=== PATIENT | female | born 1980 | race Caucasian/White ===

== ENCOUNTER 2017-01-23 15:41 | Emergency (ER) | payer SELFPAY ==
[2017-01-23 15:56] VITALS: TEMP 97.2; BMI 23.3
--- NOTE | 2017-01-23 16:00 | PDOC ---
History of Present Illness - History of Present Illness Initial Comments: 01/23/17 16:20 The patient is 36 year old female with a past medical hx of heroin abuse who presents to the ED via EMS for evaluation of a heroin overdose. The patient was found unconscious and was administered Narcan en route to the ED. The patient states she has been in rehab for the past two months and has been sober. She reports today is the first she has used heroin in two months. She injected one bag of heroin. She states prior to two months she would use 20 bags a day. The patient notes she took 1mg of Xanax today. She reports she ate breakfast this morning and states she feels fine while in the ED. The patient denies chest pain, SOB The patient denies fever, chills, headache The patient denies nausea, vomiting, diarrhea Allergies: Doxycycline Surgical: None <Jacquie Bishop - Last Filed: 01/23/17 16:21> - General History Source: Patient Exam Limitations: No Limitations <Licha Johnson - Last Filed: 01/25/17 11:45> - General Chief Complaint: Overdose Stated Complaint: OVERDOSE Time Seen by Provider: 01/23/17 15:47 Past History <Jacquie Bishop - Last Filed: 01/23/17 16:21> - Psycho/Social/Smoking Cessation Hx Anxiety: No Suicidal Ideation: No Smoking History: Never smoked Have you smoked in the past 12 months: No Information on smoking cessation initiated: No Hx Alcohol Use: No Drug/Substance Use Hx: Yes Substance Use Type: Heroin <Licha Johnson - Last Filed: 01/25/17 11:45> - Past Medical History Allergies/Adverse Reactions: Allergies Allergy/AdvReac Type Severity Reaction Status Date / Time No Known Allergies Allergy Verified 01/23/17 16:03 Home Medications: Ambulatory Orders Naloxone HCl [Narcan] 4 mg NS ASDIR #4 spray 01/23/17 Review of Systems - Review of Systems Able to Perform ROS?: Yes Comments:: 01/23/17 16:21 GENERAL/CONSTITUTIONAL: No: fever, chills, weakness, loss of appetite. HEAD, EYES, EARS, NOSE AND THROAT: No: change in vision, ear pain, discharge, sore throat, throat swelling. CARDIOVASCULAR: No: chest pain, lightheadedness, palpitations, syncope RESPIRATORY: No: cough, shortness of breath, wheezing, hemoptysis, stridor. GASTROINTESTINAL: No: nausea, vomiting, abdominal cramping, diarrhea, rectal bleeding, constipation. GENITOURINARY: No: dysuria, hematuria, frequency, urgency, flank pain. MUSCULOSKELETAL: No: back pain, neck pain, joint pain, muscle swelling or pain SKIN: No: lesions, pallor, rash or easy bruising. NEUROLOGIC: No: headache, vertigo, paresthesias, weakness ENDOCRINE: No: unexplained weight gain or loss HEMATOLOGIC/LYMPHATIC: No: anemia, easy bleeding, swelling nodes <Jacquie Bishop - Last Filed: 01/23/17 16:21> *Physical Exam - Vital Signs Last Vital Signs Temp Pulse Resp BP Pulse Ox 97.2 F L 113 H 22 140/122 115 H 01/23/17 15:51 01/23/17 15:51 01/23/17 15:51 01/23/17 15:51 01/23/17 15:51 - Physical Exam Comments: 01/23/17 16:21 GENERAL: The patient is in no acute distress. HEAD: Normal with no signs of trauma. EYES: PERRLA, EOMI, sclera anicteric, conjunctiva clear. ENT: Ears normal, nares patent, oropharynx clear without exudates. Moist mucous membranes. NECK: Normal range of motion, supple without lymphadenopathy, JVD, or masses. LUNGS: Breath sounds equal, clear to auscultation bilaterally. No wheezes, and no crackles. HEART:Regular rate and rhythm, normal S1 and S2 without murmur, rub or gallop. ABDOMEN: Soft, nontender, normoactive bowel sounds. No guarding, no rebound. EXTREMITIES: Normal range of motion, no edema. No clubbing or cyanosis. No erythema, or tenderness. NEUROLOGICAL: Cranial nerves II through XII grossly intact. Normal speech. No focal neurological deficits. MUSCULOSKELETAL: Back nontender to palpation, no CVA tenderness SKIN: Warm, Dry, normal turgor, no rashes or lesions noted. <Jacquie Bishop - Last Filed: 01/23/17 16:21> - Vital Signs Last Vital Signs Temp Pulse Resp BP Pulse Ox 97.2 F L 113 H 22 140/122 115 H 01/23/17 15:51 01/23/17 15:51 01/23/17 15:51 01/23/17 15:51 01/23/17 15:51 <Licha Johnson - Last Filed: 01/25/17 11:45> Heart Score/ECG Review #1 ECG reviewed & interpreted by me at: 17:10 General ECG Interpretation: Sinus Rhythm, Normal Intervals, No acute ischemic changes 01/23/17 17:10 SR tachycardiac rate of 108 bpm Nml axis No st elevations or depressions T waves nml <Licha Johnson - Last Filed: 01/25/17 11:45> Medical Decision Making - Medical Decision Making 01/23/17 16:00 A portion of this note was documented by scribe services under my direction. I have reviewed the details of the note, within reason, and agree with the documentation with the following case summary and management plan written by me. Nursing documentation reviewed and incorporated into medical decision making 01/23/17 16:47 This is a 36 yo F with no significant past medical history who presents to the ER s/p heroin use Pt states 2 months ago, she went into rehab She has been clean since then, not on Methadone Prior to Detox, she was using upwards of 2.5 bundles of Heroin Today, she used 1 bag of heroin (IVDU) and Xanax 1mg Does not know what happened after that Boyfriend called EMS Pt given Narcan Pt is awake and alert RR 10 Pt is tachycardiac Will do Urine Will give IVF for tachycardia and dehydration Will monitor for somnolence once Narcan wears off If stable over the next3 hours, will discharge to home Updated history Pt states that they had two narcan vials from a prior Rehab stay at [facility] Both she and her boyfriend were getting high When he passed out, she gave him both doses of narcan (1st one seemed ineffective) He awoke and then she passed out but they had run out of Narcan He panicked and called 911 EMS gave narcan I have spoken to patient She is eating candies with her boyfriend She has been offered a rehab program (aslo given the referral to [facility]) I have ordered Narcan Nasal spray Pt states she is NOT going to do any more heroin but .... in case she does.... <Licha Johnson - Last Filed: 01/25/17 11:45> *DC/Admit/Observation/Transfer - Attestations Scribe Attestion: 01/23/17 16:20 Documentation prepared by Jacquie Bishop, acting as biomedical engineering technologist for Licha Johnson MD/DO. <Jacquie Bishop - Last Filed: 01/23/17 16:21> - Discharge Dispostion Admit: No <Licha Johnson - Last Filed: 01/25/17 11:45> Diagnosis at time of Disposition: Heroin use - Discharge Dispostion Disposition: HOME Condition at time of disposition: Improved - Prescriptions Prescriptions: Naloxone HCl [Narcan] 4 mg NS ASDIR #4 spray - Referrals Referrals: STAFF,NOT ON [Primary Care Provider] - Dmitri Shannon MD [Staff Physician] - - Patient Instructions Printed Discharge Instructions: Chemical Dependency (Narcotic) (Alternative Therapy) Additional Instructions: Amrik Thank you for coming in to the ER today If you would like, you can go to [facility] for their detox program Return to the ER for any other concerns or complaints - Post Discharge Activity Work/School Note: Back to Work
[2017-01-23] MEDS ORDERED: SODIUM CHLORIDE 1,000 ML IV STA (16:13)
[2017-01-23 18:08] VITALS: BP 105/77; PULSE 89
[2017-01-23 18:29] LABS: URINE APPEARANCE SLCLOUDY; URINE BILIRUBIN NEGATIVE (NEGATIVE); URINE BLOOD NEGATIVE (NEGATIVE); URINE COLOR YELLOW; URINE GLUCOSE (UA) NEGATIVE (NEGATIVE); URINE KETONE NEGATIVE (NEGATIVE); URINE LEUK ESTERASE NEGATIVE (NEGATIVE); URINE NITRITE NEGATIVE (NEGATIVE); URINE UROBILINOGEN NEGATIVE E.U./dl (0.2-1.0)
[2017-01-23 18:35] LABS: URINE PROTEIN 1+ (NEGATIVE)
[2017-01-23 18:36] LABS: URINE BACTERIA RARE /hpf (NONE SEEN); URINE HYALINE CAST 9 /lpf; URINE MUCUS MANY; URINE RBC 3 /hpf (0-3); URINE WBC 7 /hpf (3-5)
--- NOTE | 2017-01-24 20:26 | EKG ---
Test Reason : Blood Pressure : / mmHG Vent. Rate : 108 BPM Atrial Rate : 108 BPM P-R Int : 130 ms QRS Dur : 078 ms QT Int : 344 ms P-R-T Axes : 054 056 024 degrees QTc Int : 460 ms SINUS TACHYCARDIA OTHERWISE NORMAL ECG NO PREVIOUS ECGS AVAILABLE Confirmed by NILES HERNÁNDEZ MD ([id number]) on 01/24/2017 8:26:21 PM Referred By: Confirmed By:NILES HERNÁNDEZ MD
== END 2017-01-23 18:49 | disposition home or self-care (01) ==
LOC: SUPCPDRO 15:41 → JER 15:41
PROC: 3E0337Z Introduction of Electrolytic and Water Balance Substance into Peripheral Vein, Percutaneous Approach (ICD-10-PCS; principal; 2017-01-23)
DX: F11.10 Opioid abuse, uncomplicated (principal); F13.10 Sedative, hypnotic or anxiolytic abuse, uncomplicated; E87.6 Hypokalemia
CPT/HCPCS: 81003; 81015; 84703; 93005; 93010; 99283-25

== ENCOUNTER 2017-07-20 12:19 | Emergency (ER) | payer SELFPAY ==
[2017-07-20 12:39] VITALS: BP 121/75; PULSE 65; TEMP 98.6; BMI 21.6
[2017-07-20] MEDS ORDERED: ONDANSETRON 4 MG/2 ML VIAL IVPUSH ONE (14:25)
[2017-07-20] MEDS ORDERED: SODIUM CHLORIDE 1,000 ML IV STA ×2 (14:25→15:34)
[2017-07-20 14:58] LABS: BASOPHIL 0.3 % (0-2.0); MCH 27.7 pg (25.7-33.7); MCHC 33.6 g/dl (32.0-36.0); MEAN CELL VOLUME 82.6 fl (80-96); NEUTROPHILS 83.7 % (42.8-82.8); PLATELET COUNT 359 K/MM3 (134-434); RDW 15.5 % (11.6-15.6); WHITE BLOOD COUNT 12.2 K/mm3 (4.0-10.0)
[2017-07-20 15:00] LABS: URINE APPEARANCE TURBID; URINE BILIRUBIN NEGATIVE (NEGATIVE); URINE BLOOD 3+ (NEGATIVE); URINE COLOR AMBER; URINE GLUCOSE (UA) NEGATIVE (NEGATIVE); URINE KETONE 2+ (NEGATIVE); URINE LEUK ESTERASE TRACE (NEGATIVE); URINE NITRITE NEGATIVE (NEGATIVE); URINE UROBILINOGEN NEGATIVE mg/dL (0.2-1.0)
[2017-07-20 15:12] LABS: URINE MUCUS MANY; URINE PROTEIN 1+ (NEGATIVE); URINE RBC 28 /hpf (0-3); URINE WBC 3 /hpf (3-5)
--- NOTE | 2017-07-20 15:15 | PDOC ---
History of Present Illness - General Chief Complaint: Substance Abuse Stated Complaint: DEHYDRATED/detox Time Seen by Provider: 07/20/17 14:05 History Source: Patient Exam Limitations: No Limitations - History of Present Illness Initial Comments: 07/20/17 15:09 36-year-old female with history of alcohol and heroin abuse presents to the ED for complaints of nausea vomiting, diarrhea, increased anxiety, and difficulty eating. Patient states this time to detox for heroin and is currently on day 3 but states is requiring medical attention since she is unable to do it on her own. Patient is requesting something for anxiety and IV fluids. Timing/Duration: constant Severity: moderate Associated Symptoms: reports: loss of appetite, malaise, nausea/vomiting Past History - Travel Traveled outside of the country in the last 30 days: No Close contact w/someone who was outside of country & ill: No - Past Medical History Allergies/Adverse Reactions: Allergies Allergy/AdvReac Type Severity Reaction Status Date / Time Tetracyclines Allergy Verified 07/20/17 12:35 Home Medications: Ambulatory Orders NK [No Known Home Medication] 07/20/17 Asthma: Yes Other medical history: alcohol and heroin abuse - Psycho/Social/Smoking Cessation Hx Anxiety: No Suicidal Ideation: No Smoking History: Never smoked Have you smoked in the past 12 months: Yes Number of Cigarettes Smoked Daily: 20 Information on smoking cessation initiated: Yes Hx Alcohol Use: Yes (daily) Drug/Substance Use Hx: Yes (heroin) Substance Use Type: Alcohol, Heroin Patient Lives Alone: No Lives with/in: spouse/SO Review of Systems - Review of Systems Able to Perform ROS?: Yes Constitutional: No: Symptoms Reported HEENTM: No: Symptoms Reported Respiratory: No: Symptoms reported Cardiac (ROS): No: Symptoms Reported ABD/GI: Yes: Nausea, Poor Appetite, Poor Fluid Intake, Vomiting Musculoskeletal: No: Symptoms Reported Integumentary: No: Symptoms Reported Neurological: No: Headache Psychiatric: Yes: Anxiety, Sleep Pattern Change, Mood Swings *Physical Exam - Vital Signs Last Vital Signs Temp Pulse Resp BP Pulse Ox 98.6 F 65 18 121/75 100 07/20/17 12:37 07/20/17 12:37 07/20/17 12:37 07/20/17 12:37 07/20/17 12:37 - Physical Exam General Appearance: Yes: Nourished, Appropriately Dressed. No: Apparent Distress HEENT: positive: EOMI, VANESSA. negative: Pale Conjunctivae Neck: positive: Supple Respiratory/Chest: positive: Lungs Clear, Normal Breath Sounds. negative: Respiratory Distress, Accessory Muscle Use Cardiovascular: positive: Regular Rhythm, Regular Rate. negative: Murmur Gastrointestinal/Abdominal: positive: Soft. negative: Tenderness Extremity: positive: Normal Capillary Refill. negative: Pedal Edema Integumentary: positive: Warm, Pale, Moist Neurologic: positive: Motor Strength 5/5. negative: Normal Mood/Affect (anxious ) ED Treatment Course - LABORATORY CBC & Chemistry Diagram: 07/20/17 14:50 07/20/17 14:50 - ADDITIONAL ORDERS Additional order review: Laboratory Results 07/20/17 07/20/17 14:50 14:50 Lipase Cancelled Urine HCG, Qual Negative 07/20/17 14:50 RBC 5.69 H MCV 82.6 MCHC 33.6 RDW 15.5 MPV 7.0 L Neutrophils % 83.7 H Lymphocytes % 12.8 Monocytes % 3.2 L Eosinophils % 0.0 Basophils % 0.3 Medical Decision Making - Medical Decision Making 07/20/17 15:13 Patient here for evaluation of dehydration and GI complaints and while trying to detox from heroin. Patient on exam had no acute findings except for that she was anxious and requiring medications upon arrival. Patient ordered for CBC, comp, magnesium, lipase, urinalysis, urine , IV fluids, Zofran, Ativan, and Benadryl 07/20/17 17:28 Laboratory Tests 07/20/17 07/20/17 07/20/17 14:50 14:50 14:50 WBC 12.2 H Hgb 15.8 H Hct 47.0 H Neutrophils % 83.7 H Monocytes % 3.2 L Sodium 141 Potassium 3.4 L Chloride 100 Carbon Dioxide 27 Anion Gap 14 BUN 17 Creatinine 1.0 Random Glucose 118 H Calcium 10.3 H Magnesium Total Bilirubin 0.8 AST 19 ALT 23 Alkaline Phosphatase 80 Total Protein 9.2 H Albumin 5.1 H Lipase 112 Urine Protein 1+ H Urine Ketones 2+ H Urine Blood 3+ H Urine Nitrite Negative Ur Leukocyte Esterase Trace Urine RBC 28 Urine WBC 3 Urine HCG, Qual Negative 07/20/17 14:50 WBC Hgb Hct Neutrophils % Monocytes % Sodium Potassium Chloride Carbon Dioxide Anion Gap BUN Creatinine Random Glucose Calcium Magnesium 2.3 Total Bilirubin AST ALT Alkaline Phosphatase Total Protein Albumin Lipase Urine Protein Urine Ketones Urine Blood Urine Nitrite Ur Leukocyte Esterase Urine RBC Urine WBC Urine HCG, Qual Pt requesting to leave. Pt will be discharged home *DC/Admit/Observation/Transfer Diagnosis at time of Disposition: Heroin use - Discharge Dispostion Disposition: HOME Condition at time of disposition: Improved - Referrals Referrals: Wilbert Hammond MD [Staff Physician] - - Patient Instructions Printed Discharge Instructions: Chemical Dependency (Narcotic) (Alternative Therapy) Additional Instructions: Please utilize all resources to avoid drug and alcohol use. If she develops severe symptoms she may return to the ED. otherwise please follow up with referred detox physician at [facility]
[2017-07-20 15:22] LABS: ALBUMIN 5.1 g/dl (3.4-5.0); ANION GAP 14 (8-16); BILIRUBIN,TOTAL 0.8 mg/dL (0.2-1.0); CALCIUM 10.3 mg/dL (8.5-10.1); CO2 27 mmol/L (21-32); GLUCOSE,RANDOM 118 mg/dL (74-106); SGOT/AST 19 U/L (15-37); SGPT/ALT 23 U/L (12-78); TOT PROT 9.2 g/dl (6.4-8.2)
[2017-07-20 15:23] LABS: ALK PHOS 80 U/L (45-117)
[2017-07-20] MEDS ORDERED: LORazepam 2 MG/ML SDV VIAL ONE (15:31)
[2017-07-20] MEDS ORDERED: ONDANSETRON 4 MG/2 ML VIAL ONE ×2 (15:32)
[2017-07-20] MEDS ORDERED: POTASSIUM CHLORIDE TABS 20 MEQ TABLET.ER (FP) PO ONE ×2 (16:21→16:51)
== END 2017-07-20 18:00 | disposition home or self-care (01) ==
LOC: JER 12:19
PROC: 3E033NZ Introduction of Analgesics, Hypnotics, Sedatives into Peripheral Vein, Percutaneous Approach (ICD-10-PCS; principal; 2017-07-20)
PROC: 3E033GC Introduction of Other Therapeutic Substance into Peripheral Vein, Percutaneous Approach (ICD-10-PCS; 2017-07-20)
DX: F11.23 Opioid dependence with withdrawal (principal); F10.230 Alcohol dependence with withdrawal, uncomplicated; E86.0 Dehydration
CPT/HCPCS: 36415; 80053; 81003; 81015; 83690; 83735; 84703; 85025; 99283-25

== ENCOUNTER 2018-04-24 15:29 | Inpatient (IN) | payer OTHER ==
[2018-04-24 15:40] VITALS: BMI 31.1
--- NOTE | 2018-04-24 18:16 | HP ---
COWS - Scale Resting Pulse: 0= MI 80 or Below Sweatin= Chills/Flushing Restless Observation: 1= Difficult to Sit Still Pupil Size: 1= Pupils >than Normal Bone or Joint Aches: 1= Mild Discomfort Runny Nose/ Eye Tearin= Runny Nose/Eyes GI Upset > 30mins: 3= Vomiting/Diarrhea Tremor Observation: 1= Tremor [place], Not Seen Yawning Observation: 2= >3x During Session Anxiety or Irritability: 2=Irritable/Anxious Goose Flesh Skin: 0=Smooth Skin COWS Score: 14 CIWA Score - CIWA Score Nausea/Vomitin-Int. Nausea w/Dry Heave Muscle Tremors: 2 Anxiety: 3 Agitation: 3 Paroxysmal Sweats: 2 Orientation: 0-Oriented Tacttile Disturbances: 0-None Auditory Disturbances: 0-None Visual Disturbances: 0-None Headache: 0-None Present CIWA-Ar Total Score: 14 Admission ROS S - HPI Chief Complaint: " I am trying to get off heroin, I feel really back, I cant not eat anything, I' ve been vomiting." Allergies/Adverse Reactions: Allergies Allergy/AdvReac Type Severity Reaction Status Date / Time Tetracyclines Allergy Verified 04/24/18 16:47 History of Present Illness: 37 yo female with hx of heroin, alcohol, and nicotine dependence. Reports was introduced to heroin by a friend three years. PMHX anxiety and depression. Denies suicidal / homicidal ideation. Reports hx of OD 2 months ago. Last detox 2 months ago at home, last inpatient [facility] in April 25, 2017. Longest period of sobriety 45 days. Exam Limitations: No Limitations - Ebola screening Have you traveled outside of the country in the last 21 days: No (N) Have you had contact with anyone from an Ebola affected area: No Have you been sick,other than usual withdrawal symptoms: No Do you have a fever: No - Review of Systems Constitutional: Chills, Diaphoresis, Changes in sleep, Weakness, Other (weight gain from heroin use 20+ lbs) EENT: reports: Nose Congestion Respiratory: reports: No Symptoms reported Cardiac: reports: No Symptoms Reported GI: reports: Nausea, Poor Appetite, Poor Fluid Intake, Vomiting : reports: No Symptoms Reported Musculoskeletal: reports: Back Pain, Joint Pain Integumentary: reports: No Symptoms Reported Neuro: reports: Dizziness Endocrine: reports: Increased Thirst Hematology: reports: No Symptoms Reported Psychiatric: reports: Anxious Other Systems: Reviewed and Negative Patient History - Patient Medical History Hx Anemia: No Hx Asthma: No Hx Chronic Obstructive Pulmonary Disease (COPD): No Hx Cancer: No Hx Cardiac Disorders: No Hx Congestive Heart Failure: No Hx Hypertension: No Hx Hypercholesterolemia: No Hx Pacemaker: No HX Cerebrovascular Accident: No Hx Seizures: No Hx Dementia: No Hx Diabetes: No Hx Gastrointestinal Disorders: No Hx Liver Disease: No Hx Genitourinary Disorders: No Hx Sexually Transmitted Disorders: No Hx Renal Disease (ESRD): No Hx Thyroid Disease: No Hx Human Immunodeficiency Virus (HIV): No (declines testing today ) Hx Hepatitis C: No Hx Depression: Yes Hx Suicide Attempt: No Hx Bipolar Disorder: Yes (risperidone ) Hx Schizophrenia: No - Patient Surgical History Past Surgical History: No - PPD History Previous Implant?: No Documented Results: Negative w/o proof Implanted On Prior R Admission?: No PPD to be Administered?: Yes - Reproductive History Patient is a Female of Child Bearing Age (11 -55 yrs old): Yes Last Menstrual Period: 04/04/18 Patient : No - Smoking Cessation Smoking history: Current every day smoker Have you smoked in the past 12 months: Yes Aproximately how many cigarettes per day: 20 Hx Chewing Tobacco Use: No Initiated information on smoking cessation: Yes 'Breaking Loose' booklet given: 04/24/18 - Substance & Tx. History Hx Alcohol Use: Yes Hx Substance Use: Yes Substance Use Type: Alcohol, Heroin Hx Substance Use Treatment: Yes ([facility] in April 25, 2017. ) - Substances Abused Alcohol Route: Oral Frequency: Daily Amount used: 12 PACK BEER Age of first use: 32 Date of Last Use: 04/22/18 Heroin Route: Injection Frequency: Daily Amount used: 2 BUNDLE Age of first use: 32 Date of Last Use: 04/22/18 Family Disease History - Family Disease History Family Disease History: Other: Father (alive and well), Mother (alive and well ) Admission Physical Exam BHS - Vital Signs Vital Signs: Vital Signs - 24 hr 04/24/18 15:38 Temperature 96 F L Pulse Rate 50 L Respiratory 20 Rate Blood Pressure 122/81 - Physical General Appearance: Yes: Mild Distress, Tremorous, Anxious HEENTM: Yes: EOMI, Hearing grossly Normal, Normal ENT Inspection, Normocephalic , Normal Voice, VANESSA, Pharynx Normal, Tm's normal Respiratory: Yes: Chest Non-Tender, Lungs Clear, Normal Breath Sounds, No Respiratory Distress, No Accessory Muscle Use Neck: Yes: No masses,lesions,Nodules, Trachea in good position Breast: Yes: Breast Exam Deferred Cardiology: Yes: Regular Rhythm, Regular Rate Abdominal: Yes: Normal Bowel Sounds, Non Tender, Flat, Soft Genitourinary: Yes: Within Normal Limits Back: Yes: Normal Inspection Musculoskeletal: Yes: full range of Motion, Gait Steady, Pelvis Stable, Back pain Extremities: Yes: Normal Capillary Refill, Normal Inspection, Normal Range of Motion, Non-Tender Neurological: Yes: print designer II-XII NML intact, Fully Oriented, Alert, Motor Strength 5/5, Depressed Affect Integumentary: Yes: Normal Color, Track Scanlon (no infention, track scanlon present on both wrist) Lymphatic: Yes: Within Normal Limits - Diagnostic (1) Opioid dependence with withdrawal Current Visit: Yes Status: Acute (2) Alcohol dependence with withdrawal Current Visit: Yes Status: Acute Qualifiers: Complication of substance-induced condition: uncomplicated Qualified Code(s ): F10.230 - Alcohol dependence with withdrawal, uncomplicated (3) Anxiety and depression Current Visit: Yes Status: Acute (4) Nicotine dependence Current Visit: Yes Status: Acute Qualifiers: Nicotine product type: cigarettes (5) Nausea and vomiting Current Visit: Yes Status: Acute Qualifiers: Vomiting type: unspecified (6) Back pain Current Visit: Yes Status: Acute Qualifiers: Back pain location: low back pain Back pain laterality: midline Sciatica presence: without sciatica Cleared for Admission [facility] - Detox or Rehab [facility] Level of Care: Medically Managed Detox Regimen/Protocol: Methadone/Librium [facility] Breath Alcohol Content Breath Alcohol Content: 0 Urine Pregancy Test - Result Urine Test Results: Negative- NO Line Present Urine Drug Screen - Results Drug Screen Negative: No Urine Drug Screen Results: OPI-Opiates
[2018-04-24] MEDS ORDERED: LOPERAMIDE HCL 2 MG CAPSULE PO PRN (18:25)
[2018-04-24] MEDS ORDERED: MAG HYDROX/AL HYDROX/SIMETH 30 ML UNIT-DOSE CUP PO PRN (18:25)
[2018-04-24] MEDS ORDERED: guaiFENesin/D-METHORPHAN HB 10 ML UNIT-DOSE CUPS PO PRN (18:25)
[2018-04-24] MEDS ORDERED: chlordiazePOXIDE HCL 25 MG CAPSULE PO PRN (18:25)
[2018-04-24] MEDS ORDERED: P-EPHED 60MG/TRIPROLIDI 2.5MG TABLET PO PRN (18:25)
[2018-04-24] MEDS ORDERED: MAGNESIUM CITRATE 300 ML BOTTLE PO PRN (18:25)
[2018-04-24] MEDS ORDERED: MENTHOL/PHENOL 1 EACH UD MM PRN (18:25)
[2018-04-24] MEDS ORDERED: METHADONE HCL 10 MG TABLET (FOR DETOX USE ONLY) PO ONE ×2 (18:25→23:00)
[2018-04-24] MEDS ORDERED: MAGNESIUM HYDROX 2400MG/30ML ORAL SUSPENSION 30 ML CUP PO PRN (18:25)
[2018-04-24] MEDS ORDERED: chlordiazePOXIDE HCL 25 MG CAPSULE PO ONE (18:25)
[2018-04-24] MEDS ORDERED: IBUPROFEN 400 MG TABLET (FP) PO PRN (18:25)
[2018-04-24] MEDS ORDERED: hydrOXYzine PAMOATE 50 MG CAPSULE (FP) PO PRN (18:25)
[2018-04-24] MEDS ORDERED: ACETAMINOPHEN 325 MG TABLET (FP) PO PRN (18:25)
[2018-04-24] MEDS ORDERED: NICOTINE POLACRILEX 2 MG GUM BC PRN (18:25)
[2018-04-24] MEDS ORDERED: CYCLOBENZAPRINE HCL 5 MG TABLET PO PRN (18:39)
[2018-04-24] MEDS ORDERED: ONDANSETRON 8 MG TABLET (FP) PO PRN (18:40)
[2018-04-24] MEDS ORDERED: MELATONIN 5 MG TABLETS PO PRN (22:00)
[2018-04-24] MEDS ORDERED: THIAMINE HCL 100 MG TABLET (FP) PO SCH (22:00)
[2018-04-24] MEDS: chlordiazePOXIDE HCL 25 MG CAPSULE PO SCH (22:26)
[2018-04-24 23:19] LABS: URINE APPEARANCE TURBID; URINE BILIRUBIN NEGATIVE (<2.0 mg/dL); URINE BLOOD NEGATIVE (NEGATIVE); URINE COLOR YELLOW; URINE GLUCOSE (UA) NEGATIVE (NEGATIVE); URINE KETONE 1+ (NEGATIVE); URINE LEUK ESTERASE NEGATIVE (NEGATIVE); URINE NITRITE NEGATIVE (NEGATIVE); URINE PROTEIN NEGATIVE (NEGATIVE)
[2018-04-25] MEDS: chlordiazePOXIDE HCL 25 MG CAPSULE PO SCH ×2 (05:15→10:20)
[2018-04-25] MEDS ORDERED: PRENATAL VITAMINS W/ FOLIC ACID TABLET (FP) PO SCH (10:00)
[2018-04-25] MEDS ORDERED: METHADONE HCL 10 MG TABLET (FOR DETOX USE ONLY) PO SCH (10:00)
[2018-04-25] MEDS ORDERED: NICOTINE 14 MG/24 HOURS TOPICAL PATCH TD SCH (10:00)
--- NOTE | 2018-04-25 10:06 | CONSULT ---
[facility] Psychiatric Consult - Data Date of interview: 04/25/18 Admission source: [facility] Identifying data: History of PresenThis is 37 years old female, single, living with , with no psychiatric hospitalization history, with history of heroin , alcohol, benzodiazepins and nicotine dependence. Patient reports withdrawal symptoms and seeking for detox. Substance Abuse History: Smoking history: Current every day smoker. Have you smoked in the past 12 months: Yes. Aproximately how many cigarettes per day: 20. Hx Chewing Tobacco Use: No. Initiated information on smoking cessation: Yes. 'Breaking Loose' booklet given: 04/24/18. - Substance & Tx. History. Hx Alcohol Use: Yes. Hx Substance Use: Yes. Substance Use Type: Alcohol, Heroin. Hx Substance Use Treatment: Yes ([facility] in April. ). - Substances Abused. Alcohol. Route: Oral. Frequency: Daily. Amount used: 12 PACK BEER. Age of first use: 32. Date of Last Use: 04/22/18. Heroin. Route: Injection. Frequency: Daily. Amount used: 2 BUNDLE. Age of first use: 32. Date of Last Use: 04/22/18 Medical History: Denies significan medical issues, LBP Psychiatric History: Patient reports history of anxiety and depression, as per computer there is a history of Bipolar Disorder, reports taking prior to admission: Seroquel m100mg po qhs. Vistaril 50mg po qid. Patient reports OD with Xanax and Alcohol, Heroin , reports mfour episodes, reports all of them with no suicidal ideations, " just wanted to be high". Denies suicidal, hopmicidal history. Physical/Sexual Abuse/Trauma History: Denies Additional Comment: Seroquel 100mg po qhs. Vistaril 50mg po qid Mental Status Exam - Mental Status Exam Alert and Oriented to: Person Cognitive Function: Fair Patient Appearance: Unkempt Mood: Sad Affect: Flat Patient Behavior: Cooperative Speech Pattern: Excessive Voice Loudness: Normal Thought Process: Goal Oriented Thought Disorder: Being Controlled Hallucinations: Denies Suicidal Ideation: Denies Homicidal Ideation: Denies Insight/Judgement: Fair Sleep: Difficulty falling asleep Appetite: Weight gain Muscle strength/Tone: Mild Hypotonicity Gait/Station: Normal Additional Comments: Seroquel m100mg po qhs. Vistaril 50mg po qid Psychiatric Findings - Problem List ([place] 1, 2,3) (1) Benzodiazepine abuse Current Visit: Yes Status: Acute (2) Bipolar disorder Current Visit: Yes Status: Acute (3) Drug-induced mood disorder Current Visit: Yes Status: Acute (4) Alcohol dependence with withdrawal Current Visit: Yes Status: Acute Qualifiers: Complication of substance-induced condition: uncomplicated Qualified Code(s ): F10.230 - Alcohol dependence with withdrawal, uncomplicated (5) Anxiety and depression Current Visit: Yes Status: Acute (6) Nicotine dependence Current Visit: Yes Status: Acute Qualifiers: Nicotine product type: cigarettes (7) Opioid dependence with withdrawal Current Visit: Yes Status: Acute - Initial Treatment Plan Initial Treatment Plan: Seroquel m100mg po qhs. Vistaril 50mg po qid
--- NOTE | 2018-04-25 10:23 | PN ---
[facility] CIWA - CIWA Score Nausea/Vomitin-Mild Nausea/No Vomiting Muscle Tremors: 4-Moderate,w/Arms Extend Anxiety: 3 Agitation: 3 Paroxysmal Sweats: 1-Minimal Palms Moist Orientation: 0-Oriented Tacttile Disturbances: 0-None Auditory Disturbances: 0-None Visual Disturbances: 0-None Headache: 0-None Present CIWA-Ar Total Score: 12 S COWS - Scale Resting Pulse: 0= SC 80 or Below Sweatin= Chills/Flushing Restless Observation: 1= Difficult to Sit Still Pupil Size: 0= Normal to Room Light Bone or Joint Aches: 2= Severe Diffuse Aches Runny Nose/ Eye Tearin= Nasal Congestion GI Upset > 30mins: 2= Nausea/Diarrhea Tremor Observation of Outstretched Hands: 1= Tremor [place], Not Seen Yawning Observation: 1= 1-2x During Session Anxiety or Irritability: 2=Irritable/Anxious Goose Flesh Skin: 3=Piloerection COWS Score: 14 [facility] Progress Note (SOAP) Subjective: joint pain body ache restlessness irritable longest sobriety 16 days gi distress sweat tremor Objective: 04/25/18 10:26 Vital Signs Temperature 97.7 F 04/25/18 06:12 Pulse Rate 59 L 04/25/18 06:12 Respiratory Rate 18 04/25/18 06:12 Blood Pressure 113/73 04/25/18 06:12 O2 Sat by Pulse Oximetry (%) Laboratory Last Values Urine Color Yellow 04/24/18 22:13 Urine Appearance Turbid 04/24/18 22:13 Urine pH 5.0 (5.0-8.0) 04/24/18 22:13 Ur Specific [place] 1.024 (1.001-1.035) 04/24/18 22:13 Urine Protein Negative (NEGATIVE) 04/24/18 22:13 Urine Glucose (UA) Negative (NEGATIVE) 04/24/18 22:13 Urine Ketones 1+ (NEGATIVE) H 04/24/18 22:13 Urine Blood Negative (NEGATIVE) 04/24/18 22:13 Urine Nitrite Negative (NEGATIVE) 04/24/18 22:13 Urine Bilirubin Negative (<2.0 mg/dL) 04/24/18 22:13 Urine Urobilinogen 2.0 mg/dL (0.2-1.0) H 04/24/18 22:13 Ur Leukocyte Esterase Negative (NEGATIVE) 04/24/18 22:13 lab noted Assessment: 04/25/18 10:26 withdrawal sx muscle cramp restlessness Plan: continue detox baclofen + neurontine
[2018-04-25 10:30] LABS: HEMATOCRIT 40.6 % (32.4-45.2); HEMOGLOBIN 13.7 GM/dL (10.7-15.3); MCH 27.7 pg (25.7-33.7); MCHC 33.7 g/dl (32.0-36.0); MEAN PLT VOLUME 8.2 fl (7.5-11.1); PLATELET COUNT 194 K/MM3 (134-434); RBC 4.95 M/mm3 (3.60-5.2); RDW 14.6 % (11.6-15.6); WHITE BLOOD COUNT 9.3 K/mm3 (4.0-10.0)
[2018-04-25 10:39] LABS: ALBUMIN 3.4 g/dl (3.4-5.0); ALK PHOS 80 U/L (45-117); ANION GAP 8 (8-16); BILIRUBIN,TOTAL 0.4 mg/dL (0.2-1.0); BLOOD UREA NITROGEN 12 mg/dL (7-18); CALCIUM 8.6 mg/dL (8.5-10.1); CHLORIDE 107 mmol/L (98-107); CO2 24 mmol/L (21-32); CREATININE 0.8 mg/dL (0.55-1.02); GLUCOSE,RANDOM 109 mg/dL (74-106); SGPT/ALT 16 U/L (12-78); SODIUM 139 mmol/L (136-145); TOT PROT 6.6 g/dl (6.4-8.2)
[2018-04-25 11:22] LABS: POTASSIUM 3.5 mmol/L (3.5-5.1); SGOT/AST 14 U/L (15-37)
--- NOTE | 2018-04-25 11:26 | EKG ---
Test Reason : Blood Pressure : / mmHG Vent. Rate : 037 BPM Atrial Rate : 037 BPM P-R Int : 134 ms QRS Dur : 084 ms QT Int : 536 ms P-R-T Axes : 046 067 062 degrees QTc Int : 420 ms MARKED SINUS BRADYCARDIA ABNORMAL ECG WHEN COMPARED WITH ECG OF 23-JAN-2017 15:48, VENT. RATE HAS DECREASED BY 71 BPM T WAVE VARIATION Confirmed by LISA HA MD ([id number]) on 04/25/2018 11:26:16 AM Referred By: Confirmed By:LISA HA MD
[2018-04-25] MEDS ORDERED: BACLOFEN 10 MG TABLET (FP) PO ONE (11:45)
[2018-04-25] MEDS ORDERED: GABAPENTIN 100 MG CAPSULE (FP) PO ONE (11:45)
[2018-04-25] MEDS ORDERED: BACLOFEN 10 MG TABLET (FP) PO SCH (14:00)
[2018-04-25] MEDS ORDERED: GABAPENTIN 100 MG CAPSULE (FP) PO SCH (14:00)
[2018-04-25 14:29] VITALS: BP 119/53; PULSE 90; TEMP 98.1
--- NOTE | 2018-04-25 14:54 | DS ---
[facility] Detox Discharge Summary Admission Date: 04/24/18 Discharge Date: 04/25/18 - History Present History: Alcohol Dependence, Opioid Dependence Additional Comments: 37 years old female admitted04/24/18 for alcohol and opiate withdrawal sx insists to leave the detox regimen due to smoking cigarette free zone patient reported cigarette smoking is "a must" and not able to smoking is intolerable patient terminated alcohol and opiate detox regimen for smoking a cigarette health teaching on cigarette smoking and opiate and alcohol misuse health consequences - Physical Exam Results Vital Signs: Vital Signs Temperature 98.1 F 04/25/18 14:00 Pulse Rate 90 04/25/18 14:00 Respiratory Rate 16 04/25/18 14:00 Blood Pressure 119/53 04/25/18 14:00 O2 Sat by Pulse Oximetry (%) Pertinent Admission Physical Exam Findings: alcohol and opiate withdrawal sx Vital Signs Temperature 98.1 F 04/25/18 14:00 Pulse Rate 90 04/25/18 14:00 Respiratory Rate 16 04/25/18 14:00 Blood Pressure 119/53 04/25/18 14:00 O2 Sat by Pulse Oximetry (%) Laboratory Last Values WBC 9.3 K/mm3 (4.0-10.0) 04/25/18 07:00 RBC 4.95 M/mm3 (3.60-5.2) 04/25/18 07:00 Hgb 13.7 GM/dL (10.7-15.3) D 04/25/18 07:00 Hct 40.6 % (32.4-45.2) 04/25/18 07:00 MCV 82.0 fl (80-96) 04/25/18 07:00 MCH 27.7 pg (25.7-33.7) 04/25/18 07:00 MCHC 33.7 g/dl (32.0-36.0) 04/25/18 07:00 RDW 14.6 % (11.6-15.6) 04/25/18 07:00 Plt Count 194 K/MM3 (134-434) D 04/25/18 07:00 MPV 8.2 fl (7.5-11.1) D 04/25/18 07:00 Sodium 139 mmol/L (136-145) 04/25/18 07:00 Potassium 3.5 mmol/L (3.5-5.1) 04/25/18 07:00 Chloride 107 mmol/L (98-107) 04/25/18 07:00 Carbon Dioxide 24 mmol/L (21-32) 04/25/18 07:00 Anion Gap 8 (8-16) 04/25/18 07:00 BUN 12 mg/dL (7-18) 04/25/18 07:00 Creatinine 0.8 mg/dL (0.55-1.02) 04/25/18 07:00 Creat Clearance w eGFR > 60 (>60) 04/25/18 07:00 Random Glucose 109 mg/dL (74-106) H 04/25/18 07:00 Calcium 8.6 mg/dL (8.5-10.1) 04/25/18 07:00 Total Bilirubin 0.4 mg/dL (0.2-1.0) D 04/25/18 07:00 AST 14 U/L (15-37) L 04/25/18 07:00 ALT 16 U/L (12-78) 04/25/18 07:00 Alkaline Phosphatase 80 U/L (45-117) 04/25/18 07:00 Total Protein 6.6 g/dl (6.4-8.2) 04/25/18 07:00 Albumin 3.4 g/dl (3.4-5.0) 04/25/18 07:00 Urine Color Yellow 04/24/18 22:13 Urine Appearance Turbid 04/24/18 22:13 Urine pH 5.0 (5.0-8.0) 04/24/18 22:13 Ur Specific [place] 1.024 (1.001-1.035) 04/24/18 22:13 Urine Protein Negative (NEGATIVE) 04/24/18 22:13 Urine Glucose (UA) Negative (NEGATIVE) 04/24/18 22:13 Urine Ketones 1+ (NEGATIVE) H 04/24/18 22:13 Urine Blood Negative (NEGATIVE) 04/24/18 22:13 Urine Nitrite Negative (NEGATIVE) 04/24/18 22:13 Urine Bilirubin Negative (<2.0 mg/dL) 04/24/18 22:13 Urine Urobilinogen 2.0 mg/dL (0.2-1.0) H 04/24/18 22:13 Ur Leukocyte Esterase Negative (NEGATIVE) 04/24/18 22:13 RPR Titer Nonreactive (NONREACTIVE) 04/25/18 07:00 lab noted - Treatment Hospital Course: Detox Protocol Followed, Responded well Patient has Accepted a Rehab Referral to: community self help support groups - Medication Discharge Medications: Ambulatory Orders Quetiapine Fumarate [Seroquel] 100 mg PO HS #30 tablet 04/25/18 hydrOXYzine PAMOATE [Vistaril -] 50 mg PO Q4H PRN #90 capsule 04/25/18 - Diagnosis (1) Alcohol dependence with withdrawal Current Visit: Yes Status: Acute Qualifiers: Complication of substance-induced condition: uncomplicated Qualified Code(s ): F10.230 - Alcohol dependence with withdrawal, uncomplicated (2) Bipolar disorder Current Visit: Yes Status: Suspected Qualifiers: Active/Remission status: in partial remission Most recent bipolar episode type: mixed Qualified Code(s): F31.77 - Bipolar disorder, in partial remission , most recent episode mixed (3) Nicotine dependence Current Visit: Yes Status: Acute Qualifiers: Nicotine product type: cigarettes Substance use status: in withdrawal Qualified Code(s): F17.213 - Nicotine dependence, cigarettes, with withdrawal (4) Opioid dependence with withdrawal Current Visit: Yes Status: Acute - AMA Did Patient Leave Against Medical Advice: Yes
[2018-04-25] MEDS ORDERED: QUEtiapine FUMARATE 100 MG TABLET (FP) PO SCH (22:00)
[2018-04-25] MEDS ORDERED: chlordiazePOXIDE HCL 25 MG CAPSULE PO SCH (23:00)
[2018-04-26] MEDS ORDERED: METHADONE HCL 5 MG TABLET (FOR DETOX USE ONLY) PO SCH (10:00)
[2018-04-26] MEDS ORDERED: chlordiazePOXIDE 5 MG CAPSULE PO SCH (23:00)
[2018-04-27] MEDS ORDERED: chlordiazePOXIDE HCL 10 MG CAPSULE PO SCH (23:00)
[2018-04-28] MEDS ORDERED: METHADONE HCL 10 MG TABLET (FOR DETOX USE ONLY) PO SCH (10:00)
[2018-04-29] MEDS ORDERED: METHADONE HCL 5 MG TABLET (FOR DETOX USE ONLY) PO SCH (06:00)
== END 2018-04-25 15:16 | disposition left against medical advice (07) | DRG 770 ==
LOC: YASAS 15:29 → Y6N 18:23
PROVIDERS: ADMIT Surgery; ATTEND Surgery
PROC: HZ2ZZZZ Detoxification Services for Substance Abuse Treatment (ICD-10-PCS; principal; 2018-04-24)
DX: F11.23 Opioid dependence with withdrawal (principal); F13.10 Sedative, hypnotic or anxiolytic abuse, uncomplicated; F10.230 Alcohol dependence with withdrawal, uncomplicated; F17.213 Nicotine dependence, cigarettes, with withdrawal; F31.77 Bipolar disorder, in partial remission, most recent episode mixed; F41.8 Other specified anxiety disorders; F19.24 Other psychoactive substance dependence with psychoactive substance-induced mood disorder
CPT/HCPCS: 36415; 80053; 81003; 85027; 86593; 93005; 93010; J0475